=== PATIENT | female | born 1955 | race Caucasian/White ===

== ENCOUNTER 2024-07-19 12:17 | Emergency (ER) | payer OTHER, MEDICARE ==
[2024-07-19 12:37] VITALS: BP 140/75; PULSE 90; RESP 16; TEMP 98.6; BMI 24.2
[2024-07-19 13:53] LABS: HEMOGLOBIN 11.5 G/dL (10.7-15.3); MCH 29.8 pg (25.7-33.7); MCHC 32.7 g/dl (32.0-36.0); MEAN PLT VOLUME 8.7 fl (7.5-11.1); PLATELET COUNT 228.8 10^3/uL (134-434); RBC 3.85 10^6/uL (3.60-5.2); RDW 13.5 % (11.6-15.6); WHITE BLOOD COUNT 5.4 10^3/uL (4.0-10.8)
[2024-07-19 13:55] LABS: PLATELET ESTIMATE ADEQUATE
[2024-07-19 14:15] LABS: ALBUMIN 4.6 g/dl (3.4-5.0); BILIRUBIN,TOTAL 0.3 mg/dl (0.2-1); CALCIUM 9.4 mg/dl (8.5-10.1); CREATININE 0.8 mg/dl (0.6-1.3); MAGNESIUM 2.3 mg/dL (1.8-2.4); POTASSIUM 4.1 mmol/L (3.5-5.1); TOT PROT 6.8 g/dl (6.4-8.2)
== END 2024-07-19 16:33 | disposition left against medical advice (07) ==
LOC: FER 12:17
DX: R42 Dizziness and giddiness (principal); R55 Syncope and collapse
CPT/HCPCS: 36415; 70450-TC; 71045-TC-FY; 72125-TC; 80053; 81003; 81015; 83735; 84100; 84484; 85027; 93005; 99285-25